=== PATIENT | female | born 1950 | race Caucasian/White ===

== ENCOUNTER 2023-08-12 18:54 | Emergency (ER) | payer MEDICARE, OTHER ==
[~2023-08-12] VITALS: Ht 162.6 cm; Wt 68.5 kg
[2023-08-12 19:50] VITALS: BP 126/65; TEMP 97.7; O2SAT 99
== END 2023-08-12 23:15 ==
LOC: ER 18:59
DX: S09.8XXA Other specified injuries of head, initial encounter (principal); I10 Essential (primary) hypertension; K21.9 Gastro-esophageal reflux disease without esophagitis; R56.9 Unspecified convulsions; Z88.0 Allergy status to penicillin; Z91.018 Allergy to other foods; W18.39XA Other fall on same level, initial encounter; Y93.89 Activity, other specified; Y92.89 Other specified places as the place of occurrence of the external cause; Y99.8 Other external cause status
CPT/HCPCS: 70450-TC; 72125-TC; 73521; 73610-TC